=== PATIENT | male | born 1975 | race Caucasian/White ===

== ENCOUNTER 2017-01-02 03:04 | Emergency (ER) | payer SELFPAY ==
--- NOTE | 2017-01-02 03:07 | EDM.PDOC ---
ED HPI GENERAL MEDICAL PROBLEM - General Chief Complaint: Genitourinary Problem Stated Complaint: POSSIBLE UTI Time Seen by Provider: 01/02/17 03:07 Source of Information: Reports: Patient - History of Present Illness INITIAL COMMENTS - FREE TEXT/NARRATIVE: HISTORY AND PHYSICAL: History of present illness: [Patient presents with dysuria exudative discharge for 3 days no fever nausea vomiting chills sweats Patient does have 1 sexual partner states he is in a monogamous relationship ] Review of systems: As per history of present illness and below otherwise all systems reviewed and negative. Past medical history: As per history of present illness and as reviewed below otherwise noncontributory. Surgical history: As per history of present illness and as reviewed below otherwise noncontributory. Social history: No reported history of drug or alcohol abuse. Family history: As per history of present illness and as reviewed below otherwise noncontributory. Physical exam: HEENT: Atraumatic, normocephalic, pupils reactive, negative for conjunctival pallor or scleral icterus, mucous membranes moist, throat clear, neck supple, nontender, trachea midline. Lungs: Clear to auscultation, breath sounds equal bilaterally, chest nontender. Heart: S1S2, regular, negative for clicks, rubs, or JVD. Abdomen: Soft, nondistended, nontender. Negative for masses or hepatosplenomegaly. Negative for costovertebral tenderness. Pelvis: Stable nontender. Genitourinary: Deferred. By patient Rectal: Deferred. By patient Extremities: Atraumatic, negative for cords or calf pain. Neurovascular unremarkable. Neuro: Awake, alert, oriented. Cranial nerves II through XII unremarkable. Cerebellum unremarkable. Motor and sensory unremarkable throughout. Exam nonfocal. Diagnostics: [UA with culture GC and Chlamydia ] Therapeutics: []Azithromycin 1 g by mouth now Rocephin 250 mg IM Bactrim double strength by mouth twice a day #20 no refill Pyridium Impression: [Dysuria] Definitive disposition and diagnosis as appropriate pending reevaluation and review of above. Penis Pain Score (Numeric/FACES): 3 - Related Data Allergies Allergy/AdvReac Type Severity Reaction Status Date / Time No Known Allergies Allergy Verified 01/02/17 03:18 Home Meds: Home Meds . [No Known Home Meds] 01/02/17 [History] ED ROS GENERAL - Review of Systems Review Of Systems: ROS reveals no pertinent complaints other than HPI. ED EXAM, GENERAL - Physical Exam Exam: See Below Course - Vital Signs Last Recorded V/S: Last Vital Signs Temp 36.1 C 01/02/17 03:14 Pulse 104 H 01/02/17 03:14 Resp 18 01/02/17 03:14 BP 129/93 H 01/02/17 03:14 Pulse Ox 94 L 01/02/17 03:14 - Orders/Labs/Meds Orders: Active Orders 24 hr Category Date Time Status CHLAMYDIA AND GONORRHEA BY TMA Stat Lab 01/02/17 03:33 Ordered CULTURE URINE [RM] Stat Lab 01/02/17 03:06 Uncollected UA W/MICROSCOPIC [URIN] Stat Lab 01/02/17 03:06 Uncollected Azithromycin [Zithromax 200 MG/5 ML Susp] Med 01/02/17 03:35 Once 1,000 mg PO ONETIME ONE cefTRIAXone [Rocephin] Med 01/02/17 03:36 Once 250 mg IM ONETIME ONE Medication Orders Azithromycin (Zithromax 200 Mg/5 Ml Susp) 1,000 mg PO ONETIME ONE Stop: 01/02/17 03:36 Ceftriaxone Sodium (Rocephin) 250 mg IM ONETIME ONE Stop: 01/02/17 03:37 Meds: Medications Generic Name Dose Route Start Last Admin Trade Name Courtney PRN Reason Stop Dose Admin Azithromycin 1,000 mg 01/02/17 03:35 Zithromax 200 Mg/5 Ml Susp PO 01/02/17 03:36 ONETIME ONE Ceftriaxone Sodium 250 mg 01/02/17 03:36 Rocephin IM 01/02/17 03:37 ONETIME ONE Departure - Departure Time of Disposition: 03:38 Disposition: Home, Self-Care 01 Condition: Good Clinical Impression: UTI, Urinary tract infectious disease - Discharge Information Referrals: PCP,None [Primary Care Provider] - Forms: ED Department Discharge Additional Instructions: Medication as prescribed Return if fever nausea vomiting chills sweats despite treatment Lab is pending as discussed Follow-up with primary care as needed The following information is given to patients seen in the emergency department who are being discharged to home. This information is to outline your options for follow-up care. We provide all patients seen in our emergency department with a follow-up referral. The need for follow-up, as well as the timing and circumstances, are variable depending upon the specifics of your emergency department visit. If you don't have a primary care physician on staff, we will provide you with a referral. We always advise you to contact your personal physician following an emergency department visit to inform them of the circumstance of the visit and for follow-up with them and/or the need for any referrals to a consulting specialist. The emergency department will also refer you to a specialist when appropriate. This referral assures that you have the opportunity for follow-up care with a specialist. All of these measure are taken in an effort to provide you with optimal care, which includes your follow-up. Under all circumstances we always encourage you to contact your private physician who remains a resource for coordinating your care. When calling for follow-up care, please make the office aware that this follow-up is from your recent emergency room visit. If for any reason you are refused follow-up, please contact the [facility] emergency department at and asked to speak to the emergency department charge nurse. - My Orders Last 24 Hours: My Active Orders 01/02/17 03:06 CULTURE URINE [RM] Stat UA W/MICROSCOPIC [URIN] Stat 01/02/17 03:33 CHLAMYDIA AND GONORRHEA BY TMA Stat 01/02/17 03:35 Azithromycin [Zithromax 200 MG/5 ML Susp] 1,000 mg PO ONETIME ONE 01/02/17 03:36 cefTRIAXone [Rocephin] 250 mg IM ONETIME ONE - Assessment/Plan Last 24 Hours: My Active Orders 01/02/17 03:06 CULTURE URINE [RM] Stat UA W/MICROSCOPIC [URIN] Stat 01/02/17 03:33 CHLAMYDIA AND GONORRHEA BY TMA Stat 01/02/17 03:35 Azithromycin [Zithromax 200 MG/5 ML Susp] 1,000 mg PO ONETIME ONE 01/02/17 03:36 cefTRIAXone [Rocephin] 250 mg IM ONETIME ONE
[2017-01-02] MEDS ORDERED: Azithromycin 200 MG/5 ML Susp 15 ML Bottle PO ONE (03:35)
[2017-01-02] MEDS ORDERED: cefTRIAXone 250 MG Vial IM ONE (03:36)
[2017-01-02] MEDS ORDERED: Azithromycin 250 MG Tab PO STA (04:46)
[2017-01-02] MEDS ORDERED: Lidocaine 1% 4 ML ONE (05:04)
== END 2017-01-02 05:21 | disposition home or self-care (01) ==
LOC: MW.ED 03:04
DX: N39.0 Urinary tract infection, site not specified (principal)
CPT/HCPCS: 81001; 87086; 87491; 87591; 96372; 99283; A9270; J0696; 99282